=== PATIENT | female | born 1995 ===

== ENCOUNTER 2019-06-24 13:45 | Emergency (ER) | payer BC, MEDICAID ==
--- NOTE | 2019-06-24 17:18 | ULT ---
ULTRASOUND OBSTETRICAL COMPLETE: 06/24/19 HISTORY: 23-year-old female with abdominal pain. FINDINGS: number: [place]. lie: Cephalic. Maternal cervix: Closed and 3.5 cm in length. Placenta: Posterior and low lying. No placenta previa. Amniotic fluid volume: Subjectively low. ENRIQUE 8 cm. heart rate: 132 bpm anatomy not evaluated. biometry: Head circumference (HC): 14.9 cm 18w 0d Biparietal diameter (BPD): 3.7 cm 17w 3d Abdominal circumference (AC): 12.6 cm 18w 2d Femur length (FL): 2.7 cm 18w 2d Average ultrasound age (AUA): 17w 6d Estimated date of delivery (MARY): 11/26/2019 Last menstrual period (LMP): 02/18/2019 Gestational age by LMP: 18w 0d Estimated weight (EFW): 299 g +/- 34 g (0 lb. 8 oz. +/- 1 oz.) IMPRESSION: 1. Live second trimester intrauterine gestation. 2. Estimated gestational age of 17 weeks, 6 days. 3. Cephalic lie. 4. Borderline oligohydramnios. 5. Low lying placenta. 6. Recommend follow-up. CHRISTIAN Bentley POS: [facility]
[2019-06-24 17:57] LABS: Bacteria/HPF None Seen HPF (None Seen); Bilirubin Negative (Negative); Blood, Urine Trace (Negative); Clarity Turbid (Clear); Glucose, Urine (Dipstick) 50 mg/dL (Negative); Leukocyte Negative Leu/uL (Negative); Nitrite Negative (Negative); Protein, Urine (Dipstick) Negative (Neg-Trace); RBC/HPF 0-3 HPF (0-3); Squamous Epithelial 0-3 HPF (0-3); Urobilinogen Normal mg/dL (Less than 2); WBC/HPF 0-3 HPF (0-3)
[2019-06-26 23:19] LABS: Chlam.trachomatis by PCR,Urine Not Detected (NotDetected)
== END 2019-06-24 18:15 | disposition home or self-care (01) ==
LOC: ERS 13:45
DX: O99.89 Other specified diseases and conditions complicating pregnancy, childbirth and the puerperium (principal); N89.8 Other specified noninflammatory disorders of vagina; Z3A.18 18 weeks gestation of pregnancy
CPT/HCPCS: 36415; 76815; 81003; 81015; 84702; 87491; 87591